=== PATIENT | male | born 1955 | race Caucasian/White ===

== ENCOUNTER 2018-01-16 10:27 | Emergency (ER) | payer OTHER ==
[~2018-01-16] VITALS: Ht 182.9 cm; Wt 81.7 kg
--- NOTE | ~2018-01-16 | PROC ---
[address] [address] PROCEDURE REPORT Name: RAD PLUMMER Room: [facility] Edi#: [id number] Admission: 01/16/18 Attend Phys: Discharge: 01/16/18 Date of : 59 Report #: [id number] THIS REPORT FOR: //name// For GI report, please see the Provation report in Perceptive 7 content. By: 0623Medical Records Staff JACOBY /DESTINEY
[2018-01-16] MEDS ORDERED: FLEXERIL PO (10:36)
[2018-01-16] MEDS ORDERED: NORCO 5-325 TA1 EACH PO (10:36)
[2018-01-16] MEDS ORDERED: INDOMETHACIN 2525 MG PO (10:36)
[2018-01-16] MEDS ORDERED: ZANTAC 150MG T150 MG PO (10:37)
[2018-01-16 10:53] LABS: ABSOLUTE BASOPHILS 0.1 thou/uL (0.0-0.2); ABSOLUTE EOSINOPHILS 0.4 thou/uL (0.0-0.7); ABSOLUTE LYMPHOCYTES 2.1 thou/uL (0.8-5.3); ABSOLUTE NEUTROPHILS 5.7 thou/uL (1.6-8.1); BASOPHILS 1.4 %; EOSINOPHILS 4.4 %; HEMOGLOBIN 10.3 gm/dL (14.0-18.0); LYMPHOCYTES 22.7 %; MCH 20.4 pg (26.0-34.0); MCHC 30.4 g/dL (28.0-37.0); MCV 67.1 fL (80.0-100.0); MONOCYTES 10.3 %; MPV 7.5 fl. (7.2-11.1); NUCLEATED RBCS 0 /100WBC; PLATELET COUNT* 554 thou/uL (150-400); POLYS 61.2 %; RBC 5.07 mil/uL (4.50-6.00); RDW-CV 17.5 % (10.5-14.5); WBC 9.2 thou/uL (4.0-11.0)
[2018-01-16 10:59] LABS: ANION GAP 8 mmol/L (7-16); BUN 15 mg/dL (7-18); CALCIUM 8.5 mg/dL (8.5-10.1); CHLORIDE 104 mmol/L (98-107); CO2 26 mmol/L (21-32); GLUCOSE 93 mg/dL (70-99); POTASSIUM 4.1 mmol/L (3.5-5.1); SODIUM 138 mmol/L (136-145)
[2018-01-16 11:05] LABS: ALBUMIN 3.3 g/dL (3.4-5.0); ALKALINE PHOSPHATASE 94 U/L (46-116); LIPASE 165 U/L (73-393); SGOT 20 U/L (15-37); SGPT 14 U/L (30-65); TOTAL BILIRUBIN 0.2 mg/dL (<0.1-1.0); TOTAL PROTEIN 7.9 g/dL (6.4-8.2); TROPONIN-I LEVEL <0.06 ng/mL (<0.06)
[2018-01-16 11:20] LABS: ANISOCYTOSIS 2+; HYPOCHROMASIA 1+; MICROCYTES 3+; OVALOCYTES 1+
[2018-01-16 12:39] LABS: HEMATOCRIT 32.9 % (42.0-52.0); HEMOGLOBIN 9.9 gm/dL (14.0-18.0); MCH 20.2 pg (26.0-34.0); MCHC 30.1 g/dL (28.0-37.0); MCV 66.9 fL (80.0-100.0); RBC 4.92 mil/uL (4.50-6.00); RDW-CV 16.7 % (10.5-14.5); WBC 8.4 thou/uL (4.0-11.0)
[2018-01-16 13:03] VITALS: BP 139/82
--- NOTE | 2018-01-16 17:59 | EKG ---
[place] [address] ELECTROCARDIOGRAM REPORT Name: RAD PLUMMER Room: [facility]#: [id number] Admission: 01/16/18 Attend Phys: Discharge: 01/16/18 Date of : 59 Report #: [id number] THIS REPORT FOR: //name// [facility] ED Test Date: 2018-01-16 Test Time: 10:54:50 Pat Name: RAD PLUMMER Department: Room: Gender: [employer] Worker: Sara MORALES : 1955 Requested By: Anton Avila Order Number: [id number] MD: Royal Ya Measurements Intervals [place] Rate: 78 P: 37 AL: 128 QRS: 34 QRSD: 82 T: 38 QT: 369 QTc: 421 Interpretive Statements Sinus rhythm No previous ECG available for comparison Electronically Signed On 01-16-2018 17:58:59 CDT by Royal Ya [email or web address] <ELECTRONICALLY SIGNED> By: Royal Ya MD, [facility] 01/16/18 1758 1054 1054 Royal Ya MD, FACC /EPI
--- NOTE | 2018-01-18 14:18 | CON ---
[address] [address] CONSULTATION Name: RAD PLUMMER Room: [facility].#: [id number] Admission: 01/16/18 Attend Phys: Discharge: 01/16/18 Date of : 59 Report #: [id number] THIS REPORT FOR: //name// CC: [facility] physician/PCP Daivd Avila REASON FOR CONSULTATION: Dysphagia. Consult placed by Dr. Avila. HISTORY OF PRESENT ILLNESS: This is a very pleasant 62-year-old male who presented to the ER with inability to swallow both solids and liquids. The patient reports progressive dysphagia to solids starting a few months back. Initially, this would appear as intermittent episodes where he would choke up on small piece of food, would cough them up and then go back to eating. He reports these episodes have become progressively worse over the last few months. Last night, he had a piece of food stuck and he was not able to swallow liquids following it and that is why he presented to the ER. The patient denies any reflux symptoms, any nausea, vomiting and hematemesis. The patient also denies any weight loss. The patient does report daily NSAID use (indomethacin for the last few years). The patient never had an upper EGD performed. PAST MEDICAL HISTORY: The patient reports history of arthritis. PAST SURGICAL HISTORY: Nonsignificant. SOCIAL HISTORY: The patient has a 59-aepf-kzqq history of smoking, but quit about 6-7 years back. Denies significant alcohol or recreational drug use. FAMILY HISTORY: There is no family history of esophageal, gastric or pulmonary malignancies. REVIEW OF SYSTEMS: A comprehensive review of systems is negative except for what was mentioned above. PHYSICAL EXAMINATION: VITAL SIGNS: Blood pressure 139/82, pulse rate 86, temperature 37.5 and pulse ox 95% on room air. GENERAL: The patient is alert, awake and oriented x 3. HEENT: Pupils are equal, round and reactive to light and accommodation. LUNGS: Clear to auscultation bilaterally. Pectus excavatum deformity noted in the chest. CARDIOVASCULAR: Rate and rhythm regular. S1, S2 present. ABDOMEN: Soft, nondistended, no tenderness and no hepatosplenomegaly. Bowel sounds present. EXTREMITIES: Warm and well perfused[place] [id number] CONSULTATION Name: RAD PLUMMER Room: [facility]#: [id number] Admission: 01/16/18 Attend Phys: Discharge: 01/16/18 Date of : 59 Report #: [id number] NEUROLOGIC: There is no focal neurological deficit. SKIN: Warm and dry. LABORATORY DATA: Hemoglobin 9.9, hematocrit 32.9, MCV 66.9, platelet count 515 and WBC count 8.4. Sodium 138, potassium 4.1, chloride 104, bicarbonate 26, BUN 15 and creatinine 1. ASSESSMENT AND PLAN: This is a very pleasant 62-year-old male with a 47-tfmo-vpsn history of smoking and regular NSAID use who is presenting with progressively worsening dysphagia to solids. 1. Dysphagia to solids. 2. Microcytic anemia. PLAN: We will proceed with EGD for evaluation of the patient's dysphagia. Further recommendations for dysphagia will be based on the results of above. The patient never had a colonoscopy and therefore with microcytic anemia an outpatient colonoscopy is warranted. I will have this set up and I have explained this to the patient. <ELECTRONICALLY SIGNED> By: Ludwin Randolph MD 01/18/18 1418 1436 [id number] Randolph MD /nt
--- NOTE | 2018-01-25 07:06 | PATH ---
[address] [address] PATHOLOGY RPT PROCEDURE Name: PREM PLUMMER [id number] Admission: 01/16/18 Date of : 59 Discharge: 01/16/18 Report #: [id number] Path Case #: [id number] [facility] Accession Number: [id number] . 01 Material submitted: . SMALL BOWEL BIOPSY . 01 Clinical history: . Rule out celiac . 02 Diagnosis: Small bowel, biopsy: - Small bowel mucosa with no significant histopathologic diagnosis. (PATM:kiara; 01/18/2018) QMS/01/18/2018 . 02 Electronically signed: . Aravind Smith MD, Pathologist NPI- [id number] . 01 Gross description: . The specimen is received in formalin, labeled "[place], Prem, small bowel biopsy" and consists of 6 fragments of soft sage tissue measuring between 0.2 x 0.1 x 0.1 cm and 0.3 x 0.2 x 0.2 cm. They are entirely submitted in A1. (SDY; 01/17/2018) SYU/SYU . 02 Pathologist provided ICD-10: R11.10 . 02 CPT . 277328 Performed at: 01 [facility] [address] [place] [address] [id number] MD Edward Hernandez MD Phone: [phone] Performed at: 02 [facility] [address] [id number] MD Wilfredo Wall MD Phone: [phone]
== END 2018-01-16 13:05 | disposition still patient (30) ==
LOC: M.ERS 10:27
PROVIDERS: Emergency Medicine Emergency Medical Services; Internal Medicine Gastroenterology
DX: K22.0 Achalasia of cardia (principal); M06.9 Rheumatoid arthritis, unspecified